=== PATIENT | male | born 1990 | race Caucasian/White ===

== ENCOUNTER 2021-07-30 18:22 | Emergency (ER) | payer OTHER ==
[~2021-07-30] VITALS: Ht 182.9 cm; Wt 68.0 kg
[2021-07-30] MEDS ORDERED: TIZANIDINE HCL4 M2 PO (18:51)
[2021-07-30] MEDS ORDERED: AUGMENTIN 875-1 EACH PO (21:07)
[2021-07-30] MEDS ORDERED: NAPROSYN500 MG PO (21:07)
[2021-07-30 21:47] VITALS: BP 130/84
== END 2021-07-30 21:48 | disposition home or self-care (01) ==
LOC: ER 18:22
DX: S02.91XA Unspecified fracture of skull, initial encounter for closed fracture (principal); S01.111A Laceration without foreign body of right eyelid and periocular area, initial encounter; Z79.899 Other long term (current) drug therapy; W18.30XA Fall on same level, unspecified, initial encounter; Y93.89 Activity, other specified; Y92.89 Other specified places as the place of occurrence of the external cause; Y99.8 Other external cause status